=== PATIENT | female | born 1995 | race Caucasian/White ===

== ENCOUNTER 2022-08-23 00:01 | Observation (INO) ==
[2022-08-23] MEDS ORDERED: 0.9 % Sodium Chloride 1,000 ML IVC ONE ×3 (00:19→01:27)
[2022-08-23 00:46] LABS: Basophils # 0.1 K/mcL (0.0-0.2); Basophils % 0.2 %; Eosinophils % 0.1 %; Hematocrit 41.2 % (35.3-44.9); Hemoglobin 14.4 g/dL (11.5-15.4); Immature Granulocytes % 0.5 % (0-4); Lymphocytes # 2.3 K/mcL (0.6-4.6); Lymphocytes % 11.3 %; Mean Corpuscular Hemoglobin 30.3 pg (28.0-33.3); Mean Corpuscular Volume 86.6 fL (83.0-100.0); Mean Platelet Volume 10.6 fL (9.4-12.4); Monocytes # 1.5 K/mcL (0.0-1.3); Monocytes % 7.3 %; Neutrophils # 16.6 K/mcL (1.6-8.9); Platelet Count 222 K/mcL (140-400); Red Blood Count 4.76 M/mcL (3.82-4.97); Red Cell Distribution Width 12.4 % (11.5-14.5); Segmented Neutrophils % 80.6 %; White Blood Count 20.7 K/mcL (4.3-11.1)
[2022-08-23] MEDS ORDERED: Iopamidol - 370 500 ML MLS IVP ONE (00:50)
[2022-08-23 00:55] LABS: Bilirubin,Urine Negative (Negative); Blood,Urine Negative (Negative); Clarity,Urine Clear (Clear); Color,Urine Light-Yellow (Yellow); Glucose,Urine (UA) Normal (Normal); Ketones,Urine Negative (Negative); Leukocyte Esterase,Urine Negative (Negative); Nitrite,Urine Negative (Negative); PH,Urine 7.5 pH Units (5.0-8.0); Protein,Urine Negative (Neg-Trace); Specific Gravity,Urine 1.016 (1.010-1.025); Urobilinogen,Urine Normal (Normal)
[2022-08-23 01:01] LABS: Albumin 4.6 g/dL (3.5-5.7); Albumin/Globulin Ratio 1.8 (1.1-2.2); Bilirubin,Indirect 0.3 mg/dL (0.0-1.0); Bilirubin,Total 0.3 mg/dL (0.3-1.0); Calcium 9.5 mg/dL (8.6-10.3); Globulin 2.5 g/dL (2.4-3.5); Potassium 3.8 mEq/L (3.5-5.1); Total Protein 7.1 g/dL (6.4-8.9)
[2022-08-23] MEDS ORDERED: Piperacillin/Tazobactam 3.375 GM in 0.9 % Sodium Chloride Mini Bag 100 ML IVPB ONE (01:23)
[2022-08-23] MEDS ORDERED: Famotidine 20 MG/2 ML VIAL IVP ONE (14:00)
[2022-08-23] MEDS ORDERED: Acetaminophen IV 1,000 MG/100 ML BAG IVPB ONE (15:18)
[2022-08-23] MEDS ORDERED: Lidocaine HCL 4 ML Topical Solution (Laryng-O-Jet Kit Sterile Pak) TP ONE (15:57)
[2022-08-23] MEDS ORDERED: *HR* Propofol 200 MG/20 ML VIAL IVP ONE (15:57)
[2022-08-23] MEDS ORDERED: Ondansetron 4 MG/2 ML VIAL ONE (15:57)
[2022-08-23] MEDS ORDERED: *HR* FentaNYL (PF) 100 MCG/2 ML VIAL ONE (15:57)
[2022-08-23] MEDS ORDERED: *HR* Midazolam HCl 2 MG/2 ML VIAL ONE (15:58)
[2022-08-23] MEDS ORDERED: Lidocaine -MPF 2% 2 ML VIAL ONE (15:59)
[2022-08-23] MEDS ORDERED: *HR* HYDROMORPHONE 2 MG/ML VIAL ONE (17:04)
[2022-08-23] MEDS ORDERED: Sugammadex Sodium 200 MG/2 ML VIAL IV ONE ×2 (17:12→17:41)
[2022-08-23] MEDS ORDERED: CeFAZolin Syr 2,000MG/20 ML 2,000 MG/20 ML SYRINGE IVPB ONE (17:15)
[2022-08-23] MEDS ORDERED: *HR* HYDROmorphone PF 0.5 MG/0.5 ML SYRINGE IVP PRN (17:22)
[2022-08-23] MEDS ORDERED: Ondansetron 4 MG/2 ML VIAL IVP PRN ×2 (17:22→18:42)
[2022-08-23] MEDS ORDERED: *HR* OxyCODONE/APAP 5/325 TABLET PO PRN (18:42)
[2022-08-23] MEDS ORDERED: SUMAtriptan succinate 50 MG TABLET PO PRN (18:42)
[2022-08-23] MEDS: Ketorolac 30 MG/ML VIAL IVP SCH (23:59)
[2022-08-24] MEDS ORDERED: Piperacillin/Tazobactam 3.375 GM in 0.9 % Sodium Chloride Mini Bag 100 ML IVPB SCH ×2 (04:00→18:08)
[2022-08-24 04:22] LABS: Basophils % 0.2 %; Hematocrit 38.8 % (35.3-44.9); Hemoglobin 13.1 g/dL (11.5-15.4); Immature Granulocytes % 0.3 % (0-4); Lymphocytes # 1.2 K/mcL (0.6-4.6); Lymphocytes % 9.2 %; Mean Corpuscular HGB Conc 33.8 g/dL (31.6-35.5); Mean Corpuscular Hemoglobin 30.3 pg (28.0-33.3); Mean Corpuscular Volume 89.6 fL (83.0-100.0); Mean Platelet Volume 10.8 fL (9.4-12.4); Monocytes # 0.6 K/mcL (0.0-1.3); Monocytes % 4.8 %; Neutrophils # 10.9 K/mcL (1.6-8.9); Platelet Count 202 K/mcL (140-400); Red Blood Count 4.33 M/mcL (3.82-4.97); Red Cell Distribution Width 12.5 % (11.5-14.5); Segmented Neutrophils % 85.5 %; White Blood Count 12.7 K/mcL (4.3-11.1)
[2022-08-24] MEDS: Ketorolac 30 MG/ML VIAL IVP SCH (05:49)
[2022-08-24 06:41] VITALS: BP 120/74; PULSE 88; TEMP 98.1; O2SAT 96
[2022-08-24] MEDS ORDERED: Ibuprofen 400 MG TABLET PO ONE (09:15)
== END 2022-08-24 10:58 | disposition home or self-care (01) ==
LOC: EMEROOARM 00:01 → 3BNU 00:01
PROVIDERS: ADMIT Surgery; ATTEND Surgery